=== PATIENT | female | born 1955 ===

== ENCOUNTER 2020-08-29 10:33 | Outpatient (REF) | payer MEDICARE, OTHER, SELFPAY ==
[2020-09-03 13:58] LABS: SARS-CoV-2 RNA Undetected (Undetected); SARS-CoV-2 Specimen Source Nasal
== END 2020-08-29 10:53 ==
LOC: NCHCN 10:33
PROVIDERS: PCP Internal Medicine; Visit Provider Nurse Practitioner Family
DX: Z11.59 Encounter for screening for other viral diseases (principal)
CPT/HCPCS: U0003

== ENCOUNTER 2020-09-27 09:41 | Outpatient (REF) | payer MEDICARE, OTHER, SELFPAY ==
[2020-09-27 19:33] LABS: ALT 23 U/L (14-59); AST 17 U/L (15-37); Calculated LDL 123 mg/dL (<100); Cholesterol 240 mg/dL (<200); HDL Cholesterol 107 mg/dL (40-60); Triglyceride 50 mg/dL (<150)
== END 2020-09-27 10:01 ==
LOC: NCHCN 09:41
PROVIDERS: PCP Internal Medicine; Visit Provider Nurse Practitioner Family
DX: E78.5 Hyperlipidemia, unspecified (principal)
CPT/HCPCS: 80061; 84450; 84460

== ENCOUNTER 2023-01-19 16:53 | Outpatient (REF) | payer MEDICARE, SELFPAY ==
--- NOTE | 2023-01-19 09:20 | SKI_PTH ---
PATIENT: Annita Cunningham LOC: [facility]#:[id number] AGE/SX: 67/F ROOM: RE01/19/[address]: Lanre Sanchez : 1955 BED: DIS: 01/19/2023 SPEC #: [id number] RECD: 01/19/23 18:20 STATUS: JULIANNA REQ #: [id number] JACOB: 01/19/23 09:[address]: LauraRosa Elena DEPT: Surgical Specimen RECD BY: Yaima Barksdale ENTERED: 01/19/23 18:24 SP TYPE: BELIA LAO DR: Prosper Torres Tissues: 1 - SKIN BIOPSY(SHAVE/PUNCH) Procedures: SKIN LEVEL 4 Comments: [id number]
[2024-03-21 18:28] LABS: Anion Gap 7.8 mmol/L (3-11); BUN 18 mg/dL (7-18); CO2 28.2 mmol/L (21.0-32.0); CREATININE 0.7 mg/dL (0.55-1.02); Calcium 8.9 mg/dL (8.5-10.1); Chloride 103 mmol/L (98-107); Estimated GFR 93.56 (mL/min/1.73m2); Glucose 90 mg/dL (74-106); Potassium 4.1 mmol/L (3.5-5.1); Sodium 139 mmol/L (136-145)
== END 2023-01-19 16:54 | disposition home or self-care (01) ==
LOC: NCHCN 16:53
PROVIDERS: PCP Internal Medicine; Visit Provider Nurse Practitioner Family
DX: L82.1 Other seborrheic keratosis (principal)
CPT/HCPCS: 80048; 88305

== ENCOUNTER 2023-08-17 10:03 | Outpatient (REF) | payer MEDICARE, SELFPAY ==
[2023-08-17 18:51] LABS: Anion Gap 8.1 mmol/L (3-11); BUN 14 mg/dL (7-18); CO2 27.9 mmol/L (21.0-32.0); CREATININE 0.7 mg/dL (0.55-1.02); Calcium 9.6 mg/dL (8.5-10.1); Chloride 102 mmol/L (98-107); Estimated GFR 94.15 (mL/min/1.73m2); Glucose 99 mg/dL (74-106); Potassium 3.6 mmol/L (3.5-5.1); Sodium 138 mmol/L (136-145)
== END 2023-08-17 10:04 | disposition home or self-care (01) ==
LOC: NCHCN 10:03
PROVIDERS: PCP Internal Medicine; Visit Provider Nurse Practitioner Family
DX: R03.0 Elevated blood-pressure reading, without diagnosis of hypertension (principal)
CPT/HCPCS: 80048